=== PATIENT | male | born 1970 | race Caucasian/White ===

== ENCOUNTER 2022-12-14 10:30 | Outpatient (OUT) | payer BC, SELFPAY ==
--- NOTE | 2022-12-14 10:42 | US_ITS ---
The [address] [address] Patient Name: SCOTT VERONICA MRN: [id number] date: 1970 Sex: M Assigned Patient Location: [place] Current Patient Location: US Accession/Order Number: [id number] Exam Date: 12/14/2022 11:05 Report Date: 12/14/2022 14:18 At the request of: CHAZ ARELLANO Procedure: US prostate EXAMINATION: US prostate HISTORY: Retrograde ejaculation N53.14, Bilateral groin pain R10.32 COMPARISON: No relevant comparison available. TECHNIQUE: Ultrasound exam for the prostate with an endorectal transducer was performed utilizing real-time and color duplex Doppler sonography. FINDINGS: The prostate gland is normal in size and contour with no focal mass. Areas of hyperechogenicity within the central prostate likely representing calcification The prostate measures 4.8 x 2.4 x 4.1 cm. The right seminal vesicle measures 1.5 x 1.1 x 0.6 cm, homogeneous with no focal mass The left seminal vesicle was not definitively seen US/US prostate IMPRESSION: No acute abnormality Electronically authenticated by: RICHARD ELLSWORTH Date: 12/14/2022 14:18
== END 2022-12-14 10:31 | disposition home or self-care (01) ==
LOC: US 10:33
PROVIDERS: Family Provider Family Medicine; PCP Family Medicine; Visit Provider Urology
DX: N41.9 Inflammatory disease of prostate, unspecified (principal); N53.14 Retrograde ejaculation; R10.32 Left lower quadrant pain; R10.31 Right lower quadrant pain
CPT/HCPCS: 76872